=== PATIENT | male | born 1950 | race Caucasian/White ===

== ENCOUNTER 2021-12-05 11:20 | Emergency (ER) | payer OTHER ==
[~2021-12-05] VITALS: Ht 167.6 cm; Wt 76.2 kg
[2021-12-05 11:24] VITALS: BP_SYST 129
--- NOTE | 2021-12-05 11:28 | NUR ---
Patient triaged and placed in waiting room. VSS and patient appears in no acute distress at this time. Accompanied by , awaiting available bed, and MD notified of need for MSE.
[2021-12-05 12:06] LABS: BASOPHILS # (AUTO) 0.1 K/uL (0.0-0.2); BASOPHILS % (AUTO) 0.7 % (0.0-2.0); EOSINOPHILS # (AUTO) 0.2 K/uL (0.0-0.4); EOSINOPHILS % (AUTO) 1.7 % (0.0-4.0); HEMATOCRIT 45.9 % (36-54); HEMOGLOBIN 16.2 g/dL (14.0-18.0); LYMPHOCYTES # (AUTO) 1.7 K/uL (1.0-5.5); LYMPHOCYTES % (AUTO) 18.2 % (20.5-51.5); MEAN CORPUSCULAR HEMOGLOBIN 30 pg (27-31); MEAN CORPUSCULAR HGB CONC 35 % (32-36); MEAN CORPUSCULAR VOLUME 86 fL (79.0-98.0); MONOCYTES # (AUTO) 0.3 K/uL (0.0-1.0); MONOCYTES % (AUTO) 3.6 % (1.7-9.3); NEUTROPHILS % (AUTO) 75.8 % (40.0-70.0); PLATELET COUNT (AUTO) 224 K/uL (130-430); RED BLOOD CELL COUNT(AUTO) 5.34 MIL/uL (4.2-6.2); RED CELL DISTRIBUTION WIDTH 14.2 % (9.0-15.0); WHITE BLOOD COUNT (AUTO) 9.3 K/uL (4.8-10.8)
[2021-12-05 12:12] LABS: ANION GAP 6 (5-15); CALCIUM 9.1 mg/dL (8.4-11.0); CHLORIDE 100 mmol/L (98-107); CREATININE 0.91 mg/dL (0.55-1.30); GLUCOSE 261 mg/dL (70-99); POTASSIUM 4.1 mmol/L (3.5-5.1); UREA NITROGEN, BLOOD 16 mg/dL (8-21)
[2021-12-05 12:18] LABS: ALANINE AMINOTRANSFERASE 46 U/L (12-78); ALBUMIN 3.7 g/dL (3.4-4.8); ASPARTATE AMINOTRANSFERASE 18 U/L (10-37); LIPASE 103 U/L (73-393); PHOSPHORUS 3.4 mg/dL (2.7-4.5); TOTAL BILIRUBIN 0.9 mg/dL (0.0-1.0)
[2021-12-05 12:23] LABS: GFR AFRICAN AMERICAN 106 mL/min (>90)
[2021-12-05] MEDS ORDERED: iohexoL 350 mgI/mL, 100 ML INFUS..BTL IV ONE (14:10)
--- NOTE | 2021-12-05 15:06 | NUR ---
Placed in room 6 . Placed on monitor car operator, blood pressure machine and pulse oximeter. To gown for exam. Side rails up. Report given to TARYN GARCIA.
[2021-12-05] MEDS ORDERED: MAG HYDROX/AL HYDROX/SIMETH 30 ML, DICYCLOMINE HCL 20 MG, LIDOCAINE VISCOUS 2% 15ML (PO... PO ONE ×3 (15:30)
--- NOTE | 2021-12-05 16:41 | NUR ---
# 18 gauge angiocath placed to LAC. Use of asceptic technique. Opsite placed over site. Blood return noted. Flushed with 10 cc of normal saline. No evidence of infiltration noted. Patient tolerated well.
[2021-12-05] MEDS ORDERED: ANT30 PO (17:43)
[2021-12-05] MEDS ORDERED: FAMO40TA71 PO (17:43)
[2021-12-05] MEDS ORDERED: ONDA-8 TL (17:43)
[2021-12-05 18:23] VITALS: BP_SYST 122
--- NOTE | 2021-12-05 18:23 | NUR ---
Patient given written and verbal discharge instructions and verbalizes understanding. ER MD discussed with patient the results and treatment provided. Patient in stable condition. ID arm band removed. IV catheter removed intact and dressing applied, no active bleeding. Rx of MAALOX, ZOFRAN, PEPCID given. Patient educated on pain management and to follow up with PMD. Pain Scale 0/10 Opportunity for questions provided and answered. Medication side effect fact sheet provided.
== END 2021-12-05 18:23 | disposition home or self-care (01) ==
LOC: SED 11:20
DX: K29.70 Gastritis, unspecified, without bleeding (principal); R10.13 Epigastric pain; Z79.899 Other long term (current) drug therapy
CPT/HCPCS: 99285; 71275; 71045; 80053; 82550; 83880; 83690; 83735; 84100; 85025; 85379; 84484; 36415; 93005; 76376; Q9967; J2001